=== PATIENT | female | born 2000 | race Hispanic/Latino ===

== ENCOUNTER 2021-02-22 18:17 | Emergency (ER) | payer MEDICAID ==
[2021-02-22] MEDS ORDERED: cefTRIAXone/NS 2 GM/100 ML 2 GM/100 ML BAG IV ONE (20:48)
[2021-02-22] MEDS ORDERED: SODIUM CHLORIDE 0.9% 1000 ML 1,000 ML IV ONE ×2 (20:48→20:49)
[2021-02-22] MEDS ORDERED: ACETAMINOPHEN 500 MG TAB PO ONE (20:49)
--- NOTE | 2021-02-22 20:54 | Emergency Department Report ---
HPI - General Chief Complaint: Pain General Time Seen by Provider: 02/22/21 20:23 - HPI HPI: 20-year-old female with no known past medical history presents complaining of 1 day of low back pain as well as fever, malaise, myalgias, and headache. Patient states that the symptoms started middle of the night last night when she woke up. She reports pain in the low back and feels achy all over. She reports a headache which she describes as diffuse and pressure-like. She has had a mild dry cough. She denies any associated vision change, neck stiffness or pain, chest pain, shortness of breath, abdominal pain, nausea/vomiting, dysuria, vaginal discharge, focal weakness, sensory changes, or any other complaints. She denies any preceding trauma. Her LMP was February 18. She is not vaccinated against COVID-19. There are no known aggravating or alleviating factors. She has not tried anything for symptoms. ED Past Medical Hx - Past Medical History Previous Medical History?: No - Medications Home Medications: Home Medications Medication Instructions Recorded Confirmed Last Taken Type Cefpodoxime Proxetil 100 mg PO BID #28 tablet 02/23/21 Unknown Rx ED Review of Systems ROS: Stated complaint: HEAD, BACK AND BODY PAIN Other details as noted in HPI Constitutional: chills, fever, malaise, weakness Eyes: denies: eye pain, vision change ENT: denies: throat pain, congestion Respiratory: cough. denies: shortness of breath Cardiovascular: denies: chest pain, palpitations, syncope Gastrointestinal: denies: abdominal pain, nausea, vomiting Genitourinary: denies: dysuria, frequency, hematuria, discharge Musculoskeletal: back pain. denies: arthralgia Skin: denies: rash, lesions Neurological: headache. denies: weakness, numbness, paresthesias Psychiatric: denies: anxiety, depression Hematological/Lymphatic: denies: easy bleeding Physical Exam - Physical Exam Vital Signs: Vital Signs 02/22/21 18:41 Temperature 101.9 F H Pulse Rate 125 H Respiratory 16 Rate Blood Pressure 119/71 O2 Sat by Pulse 99 Oximetry Physical Exam: GENERAL: Well developed and well nourished. No acute distress HEAD: Normocephalic. No obvious signs of trauma. ENT: Very dry mucous membranes. EYES: Extraocular movements are intact. Pupils are equal round and reactive to light bilaterally NECK: Supple. Full painless ROM is intact. No meningismus. Trachea is midline. LUNGS: Nonlabored breathing. Equal chest rise bilaterally. Clear to auscultation bilaterally. CARDIOVASCULAR: Tachycardic but with regular rhythm. No murmurs or rubs. VASCULAR: Cap refill < 2 seconds ABDOMEN: Abdomen is soft and nondistended. There is no significant tenderness, guarding or rebound. SKIN: Skin is warm and dry NEURO: Patient is awake, alert, and oriented. 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 No focal deficits. Normal motor and sensory exam throughout. Normal speech. MUSCULOSKELETAL: No obvious deformities. No significant tenderness. Normal ROM throughout. BACK/SPINE: No midline tenderness or step-offs of the C/T spine. In the lumbar spine there is significant left CVA tenderness with some tenderness at the mid spine although it is unclear whether this represents true tenderness of the spine or tenderness from adjacenty cva tenderness ED Course Vital Signs 02/22/21 18:41 Temperature 101.9 F H Pulse Rate 125 H Respiratory 16 Rate Blood Pressure 119/71 O2 Sat by Pulse 99 Oximetry ED Medical Decision Making - Lab Data Result diagrams: 02/22/21 20:50 02/22/21 20:50 Lab Results 02/22/21 02/22/21 02/22/21 Range/Units 20:50 20:50 20:50 WBC 3.8 L (4.5-11.0) K/mm3 RBC 4.77 (3.65-5.03) M/mm3 Hgb 13.2 (10.1-14.3) gm/dl Hct 40.1 (30.3-42.9) % MCV 84 (79-97) fl MCH 28 (28-32) pg MCHC 33 (30-34) % RDW 14.5 (13.2-15.2) % Plt Count 254 (140-440) K/mm3 [place] % (Auto) [employer] Sodium 137 (137-145) mmol/L Potassium 3.6 (3.6-5.0) mmol/L Chloride 99.4 (98-107) mmol/L Carbon Dioxide 22 (22-30) mmol/L Anion Gap 19 mmol/L BUN 9 (7-17) mg/dL Creatinine 0.6 (0.6-1.2) mg/dL Estimated GFR > 60 ml/min BUN/Creatinine Ratio 15 % Glucose 91 (65-100) mg/dL Lactic Acid 1.30 (0.7-2.0) mmol/L Calcium 9.2 (8.4-10.2) mg/dL Total Bilirubin 0.20 (0.1-1.2) mg/dL AST 15 (5-40) units/L ALT 19 (7-56) units/L Alkaline Phosphatase 76 (35-129) units/L Total Protein 7.3 (6.3-8.2) g/dL Albumin 4.7 (3.9-5) g/dL Albumin/Globulin Ratio 1.8 % HCG, Qual (Negative) Urine Color (Yellow) Urine Turbidity (Clear) Urine pH (5.0-7.0) Ur Specific [place] (1.003-1.030) Urine Protein (Negative) mg/dL Urine Glucose (UA) (Negative) mg/dL Urine Ketones (Negative) mg/dL Urine Blood (Negative) Urine Nitrite (Negative) Urine Bilirubin (Negative) Urine Urobilinogen (<2.0) mg/dL Ur Leukocyte Esterase (Negative) Urine WBC (Auto) (0.0-6.0) /HPF Urine RBC (Auto) (0.0-6.0) /HPF U Epithel Cells (Auto) (0-13.0) /HPF Urine Mucus /HPF 02/22/21 02/22/21 Range/Units 20:50 Unknown WBC (4.5-11.0) K/mm3 RBC (3.65-5.03) M/mm3 Hgb (10.1-14.3) gm/dl Hct (30.3-42.9) % MCV (79-97) fl MCH (28-32) pg MCHC (30-34) % RDW (13.2-15.2) % Plt Count (140-440) K/mm3 [place] % (Auto) Sodium (137-145) mmol/L Potassium (3.6-5.0) mmol/L Chloride (98-107) mmol/L Carbon Dioxide (22-30) mmol/L Anion Gap mmol/L BUN (7-17) mg/dL Creatinine (0.6-1.2) mg/dL Estimated GFR ml/min BUN/Creatinine Ratio % Glucose (65-100) mg/dL Lactic Acid (0.7-2.0) mmol/L Calcium (8.4-10.2) mg/dL Total Bilirubin (0.1-1.2) mg/dL AST (5-40) units/L ALT (7-56) units/L Alkaline Phosphatase (35-129) units/L Total Protein (6.3-8.2) g/dL Albumin (3.9-5) g/dL Albumin/Globulin Ratio % HCG, Qual Negative (Negative) Urine Color Yellow (Yellow) Urine Turbidity Slightly-cloudy (Clear) Urine pH 5.0 (5.0-7.0) Ur Specific [place] 1.027 (1.003-1.030) Urine Protein <15 mg/dl (Negative) mg/dL Urine Glucose (UA) Neg (Negative) mg/dL Urine Ketones Neg (Negative) mg/dL Urine Blood Mod (Negative) Urine Nitrite Neg (Negative) Urine Bilirubin Neg (Negative) Urine Urobilinogen < 2.0 (<2.0) mg/dL Ur Leukocyte Esterase Mod (Negative) Urine WBC (Auto) 59.0 H (0.0-6.0) /HPF Urine RBC (Auto) 8.0 (0.0-6.0) /HPF U Epithel Cells (Auto) 7.0 (0-13.0) /HPF Urine Mucus 3+ /HPF - Medical Decision Making 20-year-old female presenting with 1 day of low back pain and fever/chills/malaise/myalgia. She is not vaccinated against COVID-19. On initial assessment she is febrile with a temp of 101.9 and tachycardic with a heart rate of 125. On physical exam she has very dry mucous membranes. She has a nonfocal neurologic exam. She has no meningismus. Lungs are clear to auscultation. She has no significant abdominal tenderness. There is left CVA tenderness. We will perform broad work-up with a full set of labs and initiate sepsis order set including cultures. We will give 2 L of IV fluid, tylenol, and ceftriaxone for now. Labs reveal no significant leukocytosis or anemia. Lactic acid is within normal limits. Kidney function is normal and there are no significant electrolyte abn ormalities. Chest x-ray reveals no acute abnormalities. Urinalysis reveals urinary tract infection, consistent with suspected pyelonephritis. Antibiotics and fluids have been ordered. We will reassess the patient after IV fluids and determine whether the patient is appropriate for discharge. Dr. Mendez discharge the patient after her vital signs improved and she felt ready to go home. Critical care attestation.: If time is entered above; I have spent that time in minutes in the direct care of this critically ill patient, excluding procedure time. ED Disposition Clinical Impression: Pyelonephritis Disposition: HOME / SELF CARE / HOMELESS Is pt being admited?: No Condition: Stable Instructions: Pyelonephritis, Adult Additional Instructions: Follow-up with your primary care doctor over the next several days. Return to the emergency department should you develop inability to to tolerate food or drink by mouth or for any other new health concerns. Prescriptions: Cefpodoxime Proxetil 100 mg PO BID #28 tablet Referrals: PRIMARY CAREM[facility] [Referring] - 3-5 Days [facility] [Provider Group] - 3-5 Days
[2021-02-22 21:15] LABS: Hematocrit 40.1 % (30.3-42.9); Hemoglobin 13.2 gm/dl (10.1-14.3); Mean Corpuscular HGB Conc 33 % (30-34); Mean Corpuscular Volume 84 fl (79-97); Platelet Count 254 K/mm3 (140-440); Red Blood Count 4.77 M/mm3 (3.65-5.03); Red Cell Distribution Width 14.5 % (13.2-15.2)
[2021-02-22 21:26] LABS: Bilirubin,Urine NEG (Negative); Blood,Urine MOD (Negative); Color,Urine Yellow (Yellow); Mucus,Urine 3+ /HPF; Protein,Urine <15 mg/dL mg/dL (Negative); Urobilinogen,Urine < 2.0 mg/dL (<2.0)
[2021-02-22 21:33] LABS: Alanine Aminotransferase 19 units/L (7-56); Albumin 4.7 g/dL (3.9-5); Blood Urea Nitrogen 9 mg/dL (7-17); Calcium 9.2 mg/dL (8.4-10.2); Hemolysis Index 12
[2021-02-22 21:45] LABS: BUN/Creatinine Ratio 15
--- NOTE | 2021-02-22 22:04 | XRay Report ---
CHEST 2 VIEWS INDICATION / CLINICAL INFORMATION: Sepsis. Generalized body pain starting last night. Fever. COMPARISON: None available. FINDINGS: SUPPORT DEVICES: None. HEART / MEDIASTINUM: No significant abnormality. LUNGS / PLEURA: No significant pulmonary abnormality. No significant pleural effusion. No pneumothora x. ADDITIONAL FINDINGS: No significant additional findings. IMPRESSION: 1. No acute abnormality of the chest. Signer Name: Jose Harrison MD Signed: 02/22/2021 10:00 PM Workstation Name: [id number]
[2021-02-22] MEDS ORDERED: SODIUM CHLORIDE 0.9% 1000 ML 2,000 ML ONE (23:58)
[2021-02-23] MEDS ORDERED: cefTRIAXone/NS 2 GM/100 ML 2 GM/100 ML BAG IV ONE (00:04)
[2021-02-23] MEDS ORDERED: ACETAMINOPHEN 500 MG TAB ONE (00:04)
[2021-02-23 02:41] LABS: Platelet Estimate Consistent w Auto; RBC Morphology Normal; Total Cells Counted 100
[2021-02-23 05:06] VITALS: BP 115/66
== END 2021-02-23 04:45 | disposition home or self-care (01) ==
LOC: ED 18:17
DX: N12 Tubulo-interstitial nephritis, not specified as acute or chronic (principal)
CPT/HCPCS: 36415; 71046; 80053; 81001; 82140; 84703; 85007; 85025; 87040; 87086; 96361; 96365; 99284; J0696; J7030; Q0162